=== PATIENT | female | born 1965 | race Caucasian/White ===

== ENCOUNTER → 2016-05-23 | Outpatient (CLI) | payer MEDICAID ==
[~2016-05-23] MED LIST: CEPH-443 PO
--- NOTE | 2016-05-23 21:38 | RADRPT ---
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 Physician: RADHA JI Quality: Good Procedures: Transthoracic echocardiogram with complete 2D, M-Mode, and doppler examination. Indications: Breast Cancer. 2D/M Mode Doppler Measurement Value Normal Ranges Measurement Value Normal Ranges LVIDd 2D 5.2 3.5 - 5.6 cm AV Peak [place] 1.7 m/sec LVIDs 2D 2.8 2.1 - 4.1 cm AV Peak PG 12.0 mmHg FS 2D 45.0 % LVOT Peak [place] 1.0 m/sec LVPWd 2D 0.8 0.6 - 1.1 cm LVOT Peak PG 4.0 mmHg IVSd 2D 0.9 0.6 - 1.1 cm MV E Peak [place] 0.7 m/sec IVS/LVPW 2D 1.0 MV A Peak [place] 0.8 m/sec AoR Diam 2D 3.3 2.0 - 3.7 cm MV E/A 0.8 LA/Ao 2D 1 0 - 1 MV Decel Time 165 msec EDV 2D 137.0 cm3 MV E/A 0.8 ESV 2D 22.9 cm3 TR Peak [place] 2.7 m/sec LA Dimen 2D 3.1 2.3 - 4.0 cm TR Peak PG 30.0 mmHg RVSP 33.0 mmHg Findings Left Ventricle: Normal left ventricular systolic function. Normal left ventricular cavity size. Normal left ventricular wall thickness. Ejection fraction is visually estimated at 65 %. Tissue Doppler/Mitral Doppler indices are consistent with impaired relaxation (Stage I diastolic dysfunction). Right Ventricle: Normal right ventricular size. Normal right ventricular systolic function. Left Atrium: The left atrium is normal in size. Right Atrium: The right atrium is normal in size. Mitral Valve: Mitral valve leaflets appear mildly thickened. Mild mitral annular calcification. Trace mitral regurgitation. Aortic Valve: No significant aortic stenosis or insufficiency. Aortic cusps appear mildly calcified. Tricuspid Valve: Normal appearance of the tricuspid valve. Estimated peak PA systolic pressure 33 mmHg. There is mild tricuspid regurgitation. Pulmonic Valve: Normal pulmonic valve appearance. Pericardium: Normal pericardium with no significant pericardial effusion. Aorta: Normal aortic root. IVC: Normal size and normal respiratory collapse consistent with normal right atrial pressure. Conclusions Normal left ventricular systolic function. Normal left ventricular cavity size. Normal left ventricular wall thickness. Ejection fraction is visually estimated at 65 %. Tissue Doppler/Mitral Doppler indices are consistent with impaired relaxation (Stage I diastolic dysfunction). Normal right ventricular size. Normal right ventricular systolic function. The left atrium is normal in size. The right atrium is normal in size. Estimated peak PA systolic pressure 33 mmHg. There is mild tricuspid regurgitation. No significant valvular stenosis or regurgitation seen of remaining visualized valves. Normal pericardium with no significant pericardial effusion. Electronically Signed By: Nam Chambers 23-May-2016 21:38:10 -0800 Patient Name: JANNA REEDER Study Date: 23-May-[id number]
== END | disposition home or self-care (01) ==
LOC: EKG 09:52
PROVIDERS: ATTEND Internal Medicine Hematology & Oncology
DX: C50.919 Malignant neoplasm of unspecified site of unspecified female breast (principal)
CPT/HCPCS: 93306